=== PATIENT | female | born 1995 | race Caucasian/White ===

== ENCOUNTER 2024-06-09 10:52 | Emergency (ER) | payer OTHER ==
[2024-06-09 11:23] VITALS: BP 116/78; PULSE 80; RESP 18; TEMP 98.4; BMI 23.0
[2024-06-09] MEDS ORDERED: ACETAMINOPHEN 325 MG TABLET (FP) ONE (11:57)
[2024-06-09] MEDS ORDERED: MAG HYDROX/AL HYDROX/SIMETH 30 ML UNIT-DOSE CUP ONE (11:57)
[2024-06-09] MEDS ORDERED: FAMOTIDINE 20 MG TABLET ONE (11:57)
[2024-06-09] MEDS: ACETAMINOPHEN 325 MG TABLET (FP) PO ONE (12:09)
[2024-06-09] MEDS: MAG HYDROX/AL HYDROX/SIMETH 30 ML UNIT-DOSE CUP PO ONE (12:09)
[2024-06-09] MEDS: FAMOTIDINE 20 MG TABLET PO ONE (12:09)
[2024-06-09 12:32] LABS: ABSOLUTE IMMATURE GRANULOCYTES 0.01 x10^3/uL (0.0-0.031); BASOPHILS # 0.01 x10^3/uL (0.01-0.08); EOSINOPHIL % 2.2 % (0.7-5.8); HEMATOCRIT 36.7 % (34.1-44.9); HEMOGLOBIN 11.9 g/dL (11.2-15.7); MCHC 32.4 g/dl (32.2-35.5); MEAN PLT VOLUME 10.3 fl (9.4-12.3); MONOCYTE # 0.32 x10^3/uL (0.24-0.86); MONOCYTE % 7.1 % (4.7-12.5); PLATELET COUNT 177 x10^3/uL (182-369); RDW 12.9 % (12.1-16.5)
[2024-06-09 12:39] LABS: BILIRUBIN,TOTAL 0.4 mg/dl (0.2-1); CALCIUM 9.1 mg/dl (8.5-10.1); CREATININE 0.8 mg/dl (0.6-1.3); TOT PROT 6.7 g/dl (6.4-8.2)
[2024-06-09] MEDS ORDERED: SUCRALFATE 1 GM/10 ML UNIT DOSE CUPS ONE (13:15)
[2024-06-09] MEDS: SUCRALFATE 1 GM TABLET (FP) PO ONE (13:18)
[2024-06-09 15:58] LABS: HCV DIAGNOSTIC IN-HOUSE W/RFLX NON-REACTIVE (NONREACTIVE); HIV INTERPRETATION NEGATIVE (NEGATIVE)
== END 2024-06-09 13:57 | disposition home or self-care (01) ==
LOC: FER 10:52
DX: R10.13 Epigastric pain (principal); K59.00 Constipation, unspecified; K64.8 Other hemorrhoids
CPT/HCPCS: 36415; 80053; 81025; 83690; 85025; 86803; 87389; 99283-25